=== PATIENT | male | born 1960 | race Caucasian/White ===

== ENCOUNTER 2021-09-01 14:24 | Outpatient (CLI) | payer MEDICARE, MEDICAID | END 2021-09-01 14:25 | disposition home or self-care (01) | LOC: CSHRAD 14:24 | PROVIDERS: ATTEND Nurse Practitioner Adult Health | DX: M79.672 Pain in left foot (principal); M79.89 Other specified soft tissue disorders; L53.9 Erythematous condition, unspecified; M20.5X2 Other deformities of toe(s) (acquired), left foot; M19.272 Secondary osteoarthritis, left ankle and foot; R39.9 Unspecified symptoms and signs involving the genitourinary system | CPT/HCPCS: 81001 ==

== ENCOUNTER 2024-03-12 16:24 | Outpatient (CLI) | payer MEDICARE, MEDICAID | END 2024-03-12 16:25 | disposition home or self-care (01) | LOC: CSHRAD 16:24 | PROVIDERS: ATTEND Nurse Practitioner Family | DX: R09.89 Other specified symptoms and signs involving the circulatory and respiratory systems (principal); J98.4 Other disorders of lung | CPT/HCPCS: 71046 ==